=== PATIENT | female | born 1955 | race Caucasian/White ===

== ENCOUNTER 2016-08-21 05:08 | Emergency (ER) | payer OTHER ==
--- NOTE | 2016-08-21 05:37 | PDOC ---
History of Present Illness - General History Source: Patient Exam Limitations: No Limitations - History of Present Illness Initial Comments: 08/21/16 05:49 The patient is a 61 year old female with significant past medical history of hypothyroidism who presents to the ED for 1 day of increasing pain and swelling to the left ankle. Patient reports she twisted her ankle yesterday and sustained pain and swelling to the area. States her pain and swelling has worsened. She is still able to bear weight. The patient denies fever, chills, cough, SOB, chest pain, and palpitations. The patient denies abdominal pain, nausea, vomiting, and diarrhea. Allergies: NKDA Social History: No alcohol, tobacco, or drug use reported. Past Surgical History: x2, tonsillectomy PCP: Dr. Jluis Dyson <Valentina Dietrich - Last Filed: 08/21/16 05:49> - General History Source: Patient <MemoryanSamuel - Last Filed: 08/21/16 05:59> - General Chief Complaint: Pain Stated Complaint: LT ANKLE PAIN Time Seen by Provider: 08/21/16 05:29 Past History <Valentina Dietrich - Last Filed: 08/21/16 05:49> - Past Medical History Thyroid Disease: Yes (Hypothyroid) - Psycho/Social/Smoking Cessation Hx Suicidal Ideation: No Smoking History: Never smoked Information on smoking cessation initiated: No Hx Alcohol Use: No Drug/Substance Use Hx: No Substance Use Type: None <MemoVivian davisan - Last Filed: 08/21/16 05:59> - Past Medical History Allergies/Adverse Reactions: Allergies Allergy/AdvReac Type Severity Reaction Status Date / Time No Known Allergies Allergy Verified 08/21/16 05:25 Review of Systems - Review of Systems Able to Perform ROS?: Yes Comments:: 08/21/16 05:50 CONSTITUTIONAL: Absent: fever, no chills, no fatigue EYES: Absent: visual changes ENT: Absent: ear pain, no sore throat CARDIOVASCULAR: Absent: chest pain, no palpitations RESPIRATORY: Absent: cough, no SOB GI: Absent: abdominal pain, no nausea, no vomiting, no constipation, no diarrhea GENITOURINARY: Absent: dysuria, no frequency, no hematuria MUSCULOSKELETAL: +left ankle pain and swelling Absent: back pain, no myalgia SKIN: Absent: rash NEURO: Absent: headache <Valentina Dietrich - Last Filed: 08/21/16 05:49> *Physical Exam - Vital Signs Last Vital Signs Temp Pulse Resp BP Pulse Ox 98.1 F 87 19 117/87 96 08/21/16 05:26 08/21/16 05:26 08/21/16 05:26 08/21/16 05:26 08/21/16 05:26 - Physical Exam Comments: 08/21/16 05:50 GENERAL: Well-appearing, well-nourished. No apparent distress. HEENT: Normocephalic, atraumatic. PERRL, EOM intact. CARDIOVASCULAR: Normal S1, S2. Regular rate and rhythm. PULMONARY: Clear to auscultation bilaterally. ABDOMEN: Soft, non-distended, non-tender. EXTREMITIES: Decreased ROM of the left ankle secondary to pain. Minimal swelling to the left lateral malleolus. No bony deformity. No joint laxity. No tenderness to the base of the 5th metatarsal of the left foot. SKIN: Warm, dry. No rash NEUROLOGICAL: No focal neurological deficits. <Valentina Dietrich - Last Filed: 08/21/16 05:49> - Vital Signs Last Vital Signs Temp Pulse Resp BP Pulse Ox 98.1 F 87 19 117/87 96 08/21/16 05:26 08/21/16 05:26 08/21/16 05:26 08/21/16 05:26 08/21/16 05:26 <Samuel Pope - Last Filed: 08/21/16 05:59> Medical Decision Making - Medical Decision Making 08/21/16 05:58 Dr. Pope: The scribe's documentation has been prepared under my direction and personally reviewed by me in its entirery. I confirm that the note above accurately reflects all work, treatment, procedures, and medical decision making performed by me. <Samuel Pope - Last Filed: 08/21/16 05:59> *DC/Admit/Observation/Transfer - Attestations Scribe Attestion: 08/21/16 05:50 Documentation prepared by Valentina Dietrich, acting as medical office receptionist for Samuel Pope MD/. <Valentina Dietrich Filed: 08/21/16 05:49> - Discharge Dispostion Admit: No <Samuel Pope - Last Filed: 08/21/16 05:59> Diagnosis at time of Disposition: Left ankle sprain Qualifiers: Encounter type: initial encounter Involved ligament of ankle: unspecified ligament Qualified Code(s): S93.402A - Sprain of unspecified ligament of left ankle, initial encounter - Discharge Dispostion Disposition: HOME Condition at time of disposition: Stable - Referrals Referrals: Jluis Dyson MD [Primary Care Provider] - Niko Jones MD [Staff Physician] - - Patient Instructions Printed Discharge Instructions: DI for Ankle Sprain Additional Instructions: rest, ice, elevate left leg. Follow up with othopedics as needed.
[2016-08-21 05:42] VITALS: BP 117/87; PULSE 87; TEMP 98.1; BMI 22.6
[2016-08-21] MEDS ORDERED: IBUPROFEN 600 MG TABLET (FP) PO STA (05:59)
[2016-08-21] MEDS ORDERED: IBUPROFEN 600 MG TABLET (FP) PO ONE (06:02)
== END 2016-08-21 06:19 | disposition home or self-care (01) ==
LOC: JER 05:08
DX: S93.402A Sprain of unspecified ligament of left ankle, initial encounter (principal); W18.49XA Other slipping, tripping and stumbling without falling, initial encounter; Y93.9 Activity, unspecified; Y92.9 Unspecified place or not applicable
CPT/HCPCS: 73610-TC-LT; 73630-TC-LT; 99282-25

== ENCOUNTER 2021-01-13 11:36 | Emergency (ER) | payer OTHER ==
[2021-01-13 12:32] VITALS: BMI 22.1
[2021-01-13] MEDS ORDERED: CASIRIVIMAB/IMDEVIMAB 10 ML in SODIUM CHLORIDE 100 ML IVPB ONE (13:33)
[2021-01-13 16:57] VITALS: BP 137/71; PULSE 86; TEMP 98.1
== END 2021-01-13 16:57 | disposition home or self-care (01) ==
LOC: JCOVINFU 11:36 → JER 11:36 → JCOVINFU 16:57
DX: U07.1 COVID-19 (principal)
CPT/HCPCS: 99284-25; Q0240

== ENCOUNTER 2022-04-08 07:55 | Emergency (ER) | payer OTHER ==
[2022-04-08 08:22] VITALS: RESP 18; BMI 22.6
[2022-04-08 09:13] LABS: MCH 30.9 pg (25.7-33.7); MCHC 33.3 g/dl (32.0-36.0); MEAN CELL VOLUME 92.6 fl (80-96); MEAN PLT VOLUME 7.8 fl (7.5-11.1); PLATELET COUNT 354.6 10^3/uL (134-434); RBC 4.21 10^6/uL (3.60-5.2); RDW 13.2 % (11.6-15.6)
[2022-04-08 09:14] LABS: ALBUMIN 4.1 g/dl (3.4-5.0); BILIRUBIN,TOTAL 0.6 mg/dl (0.2-1); CREATININE 0.6 mg/dl (0.55-1.3); TOT PROT 7.4 g/dl (6.4-8.2)
[2022-04-08 09:17] LABS: PLATELET ESTIMATE ADEQUATE
[2022-04-08 10:32] VITALS: BP 130/80; PULSE 74; TEMP 98.4
== END 2022-04-08 10:58 | disposition home or self-care (01) ==
LOC: FER 07:55
DX: N95.0 Postmenopausal bleeding (principal); N85.8 Other specified noninflammatory disorders of uterus
CPT/HCPCS: 36415; 74177-TC; 76830-TC; 76856-TC; 80053; 81003; 81015; 82272; 85027; 87086; 99285-25; Q9967